=== PATIENT | male | born 2000 | race Caucasian/White ===

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

== ENCOUNTER 2021-10-11 00:34 | Emergency (ER) | payer SELFPAY ==
--- NOTE | 2021-10-11 01:12 | EDM.PDOC ---
ED HPI GENERAL MEDICAL PROBLEM - General Chief Complaint: Chest Pain Stated Complaint: BREATHING, FELL OF A ROOF 5 DAYS AGO Time Seen by Provider: 10/11/21 00:58 Source of Information: Reports: Patient History Limitations: Reports: No Limitations - History of Present Illness INITIAL COMMENTS - FREE TEXT/NARRATIVE: This 21 yo male patient reports to the ED with pain to his right chest and an episode of shortness of breath this evening. The patient reports he fell off the roof (12 feet) 5 days ago and has been experiencing right sided chest wall pain since that time. The patient reports he did go to work today and was lifting things over his head. After work, the patient reports a significant increase in pain to the point that he could only take 1/2 breaths. The patient reports he "passed out" on the way to the ED. The patient was brought to the ED by his mother. Onset Date: 10/05/21 Duration: Constant, Intermittent (episodes of increased pain) Location: Reports: Chest (right sided chest wall pain) Quality: Reports: Ache, Stabbing Severity: Moderate Improves with: Reports: Rest Worsens with: Reports: Movement Context: Reports: Trauma (Fall from a roof 5 + days ago) Treatments WE[employer]ETHOD[employer] CONSULTANT: Reports: NSAIDS Right Anterior Chest Pain Score (Numeric/FACES): 10 - Related Data Allergies Allergy/AdvReac Type Severity Reaction Status Date / Time bee pollen Allergy Dizziness Verified 10/11/21 00:47 Home Meds: Home Meds . [No Known Home Meds] 11/21/17 [History] Past Medical History - Past Health History Medical/Surgical History: Denies Medical/Surgical History Musculoskeletal History: Reports: Fracture Social & Family History - Family History Family Medical History: No Pertinent Family History - Tobacco Use Tobacco Use Status *Q: Current Every Day Tobacco User Years of Tobacco use: 5 Packs/Tins Daily: 1 - Caffeine Use Caffeine Use: Reports: Energy Drinks - Recreational Drug Use Recreational Drug Use: No ED ROS GENERAL - Review of Systems Review Of Systems: Comprehensive ROS is negative, except as noted in HPI. ED EXAM, GENERAL - Physical Exam Exam: See Below Exam Limited By: No Limitations General Appearance: Alert, WD/WN, Anxious, Moderate Distress Eye Exam: Bilateral Eye: EOMI, Normal Inspection, PERRL Ears: Normal External Exam, Normal Canal, Hearing Grossly Normal, Normal TMs Nose: Normal Inspection, Normal Mucosa, No Blood Throat/Mouth: Normal Inspection, Normal Lips, Normal Teeth, Normal Gums, Normal Oropharynx, Normal Voice, No Airway Compromise Head: Atraumatic, Normocephalic Neck: Normal Inspection, Supple, Non-Tender, Full Range of Motion Respiratory/Chest: No Respiratory Distress, Lungs Clear, Normal Breath Sounds, No Accessory Muscle Use, Other (Right side of his chest) Cardiovascular: Normal Peripheral Pulses, Regular Rate, Rhythm, No Edema, No Gallop, No JVD, No Murmur, No Rub GI/Abdominal: Normal Bowel Sounds, Soft, Non-Tender, No Organomegaly, No Distention, No Abnormal Bruit, No Mass (Male) Exam: Deferred Rectal (Males) Exam: Deferred Back Exam: Normal Inspection, Full Range of Motion, NT Extremities: Normal Inspection, Normal Range of Motion, Non-Tender, Normal Capillary Refill, No Pedal Edema Neurological: Alert, Oriented, CN II-XII Intact, Normal Cognition, Normal Gait, Normal Reflexes, No Motor/Sensory Deficits Psychiatric: Normal Affect, Normal Mood Skin Exam: Warm, Dry, Intact, Normal Color, No Rash Lymphatic: No Adenopathy Course - Vital Signs Last Recorded V/S: Last Vital Signs Temp 96.8 F L 10/11/21 00:49 Pulse 88 10/11/21 01:45 Resp 22 H 10/11/21 01:45 BP 116/68 10/11/21 01:45 Pulse Ox 97 10/11/21 01:45 - Re-Assessments/Exams Free Text/Narrative Re-Assessment/Exam: 10/11/21 06:34 Discharge was done on paper as the computer system was down for maintenance. Departure - Departure Time of Disposition: 02:28 Disposition: Home, Self-Care 01 Condition: Fair Clinical Impression: Contusion of rib on right side - Discharge Information *PRESCRIPTION DRUG MONITORING PROGRAM REVIEWED*: Not Applicable *COPY OF PRESCRIPTION DRUG MONITORING REPORT IN PATIENT FITO: Not Applicable Referrals: PCP,None [Primary Care Provider] - Forms: ED Department Discharge Care Plan Goals: See paper for discharge due to computer downtime. Sepsis Event Note (ED) - Evaluation Sepsis Screening Result: No Definite Risk
--- NOTE | 2021-10-11 05:37 | CR ---
PROCEDURE INFORMATION: Exam: XR Right Ribs with PA Chest Exam date and time: 10/11/2021 12:54 AM Age: 21 years old Clinical indication: Other: Fall 12 feet 5 days ago right anterior chest pain TECHNIQUE: Imaging protocol: XR Right ribs with PA chest. Views: 3 views COMPARISON: No relevant prior studies available. FINDINGS: Lungs: Clear. No consolidation. Pleural spaces: No pleural effusion. No pneumothorax. Heart/Mediastinum: Unremarkable. No cardiomegaly. Bones/joints: Unremarkable. No displaced fracture or malalignment. IMPRESSION: No acute findings.
== END 2021-10-11 02:35 | disposition home or self-care (01) ==
LOC: DL.ED 00:34
DX: S20.211A Contusion of right front wall of thorax, initial encounter (principal); Z72.0 Tobacco use; Z91.030 Bee allergy status; W13.2XXA Fall from, out of or through roof, initial encounter
CPT/HCPCS: 71101-RT; 99283

== ENCOUNTER 2022-10-13 16:51 | Emergency (ER) | payer SELFPAY ==
[2022-10-13] MEDS ORDERED: Omeprazole 20 MG Cap.CR PO ONE (16:52)
[2022-10-13] MEDS: Ondansetron 4 MG/2 ML SDV IVPUSH ONE (18:53)
[2022-10-13] MEDS: Octreotide 100 MCG in Sodium Chloride 0.9% 99 ML IV SCH (18:53)
[2022-10-13 19:09] LABS: CHLORIDE,CL 103 mmol/L (98-107); SODIUM,NA 141 mmol/L (136-145)
[2022-10-13 19:10] LABS: ACETAMINOPHEN 0 ug/mL (10-30 (Therapeutic)); ESTIMATED GFR 123 mL/min (>=60)
[2022-10-13] MEDS: Iopamidol 612 MG/ML 100 ML Bottle IVPUSH ONE (20:26)
[2022-10-13] MEDS: Omeprazole 20 MG Cap.CR ONE (21:43)
[2022-10-13] MEDS: Pantoprazole 40 MG Vial IVPUSH ONE (21:45)
[2022-10-13] MEDS: Pantoprazole 40 MG Tab.CR PO ONE (21:54)
== END 2022-10-13 22:00 | disposition home or self-care (01) ==
LOC: DL.ED 16:51
DX: K29.90 Gastroduodenitis, unspecified, without bleeding (principal); F17.210 Nicotine dependence, cigarettes, uncomplicated; Z91.030 Bee allergy status
CPT/HCPCS: 36415; 74177; 80053; 80143; 80179; 80307; 82140; 82150; 83605; 83690; 83735; 85025; 85610; 87040; 96365; 96366; 96374; 96375; 99284; C9113; J2354; J2405; J3490; Q9967; A9270-GY

== ENCOUNTER 2025-03-20 16:23 | Emergency (ER) | payer SELFPAY ==
[2025-03-20] MEDS: Dexamethasone 4 MG/ML SDV IM ONE (17:21)
[2025-03-20] MEDS: cefTRIAXone 1 GM Vial IM ONE (17:22)
[2025-03-20] MEDS: Take Home: Amoxicillin/Clavulanate K 875-125 MG Tab, 6 Tab Pack PO ONE (17:23)
== END 2025-03-20 17:31 | disposition home or self-care (01) ==
LOC: DL.ED 16:23
DX: J02.9 Acute pharyngitis, unspecified (principal); Z88.8 Allergy status to other drugs, medicaments and biological substances
CPT/HCPCS: 87081; 87430; 96372; 99283; A9270; J0696; J1100

== ENCOUNTER 2025-08-08 15:22 | Emergency (ER) | payer SELFPAY ==
[2025-08-08] MEDS ORDERED: Sodium Chloride 0.9% 10 ML Syringe FLUSH PRN (15:28)
[2025-08-08] MEDS: Ondansetron 4 MG/2 ML SDV IVPUSH ONE (15:30)
[2025-08-08] MEDS: Ketorolac 30 MG/ML SDV IVPUSH ONE (15:50)
[2025-08-08] MEDS: Diphtheria,Pertussis(Acell),Tetanus Vaccine 0.5 ML Syringe IM ONE (16:16)
[2025-08-08] MEDS: Lidocaine 2% with EPINEPHrine 1:200,000 20 ML SDV INJECT ONE (16:17)
== END 2025-08-08 17:25 | disposition home or self-care (01) ==
LOC: DL.ED 15:22
DX: S42.402B Unspecified fracture of lower end of left humerus, initial encounter for open fracture (principal); Z91.030 Bee allergy status; Z23 Encounter for immunization; W20.8XXA Other cause of strike by thrown, projected or falling object, initial encounter; Y93.89 Activity, other specified
CPT/HCPCS: 12002; 73070; 73200; 90471; 90715; 96374; 96375; 96376; 99284; J0696; J1885; J2004; J2405; J1171